=== PATIENT | female | born 1980 | race Caucasian/White ===

== ENCOUNTER 2018-01-31 14:58 | Emergency (ER) | payer OTHER ==
[2018-01-31 15:30] VITALS: BP 123/85
--- NOTE | 2018-01-31 16:49 | UC ---
Lower Extremity/Ankle HPI - HPI Summary HPI Summary: 37 y/o female presents to the urgent care c/o left second toe painful, swollen and red since this morning. Pt reports she was in a retrieve and she was walking by the water and mud and she realized her toe was very sensitive when she walked. Pt states pain is 7/10 at touch w/o any drainage. Pt denies numbness or tingling sensation over the left foot, calf pain, SOB, chest pain, abdominal pain, N/V/D. - History of Current Complaint Chief Complaint: UCLowerExtremity Stated Complaint: INFECTED TOE Time Seen by Provider: 01/31/18 16:25 Hx Obtained From: Patient Hx Last Menstrual Period: [id number] ?: No Onset/Duration: Gradual Onset, Lasting Hours - 12hrs Severity Initially: Mild Severity Currently: Moderate Pain Intensity: 7 Pain Scale Used: 0-10 Numeric Aggravating Factor(s): Ambulation Alleviating Factor(s): Rest Able to Bear Weight: Yes - Risk Factors Gout Risk Factors: Negative DVT Risk Factors: Negative Septic Arthritis Risk Factor: Negative - Allergies/Home Medications Allergies/Adverse Reactions: Allergies Allergy/AdvReac Type Severity Reaction Status Date / Time No Known Allergies Allergy Verified 01/31/18 15:31 PMH/Surg Hx/FS Hx/Imm Hx Previously Healthy: Yes - Pt denies PMHX - Surgical History Surgical History: Yes Surgery Procedure, Year, and Place: fibroid removal 2011 - Family History Known Family History: Positive: Diabetes - Social History Occupation: Employed Full-time Lives: With Family Alcohol Use: Weekly Substance Use Type: None Smoking Status (MU): Former Smoker Review of Systems Skin: Other - swelling and redness over the 2nd toe Eyes: Negative ENT: Negative Respiratory: Negative Cardiovascular: Negative Gastrointestinal: Negative Genitourinary: Negative Motor: Negative Neurovascular: Negative Musculoskeletal: Other: - left 2nf toenail pain Neurological: Negative Psychological: Negative Is Patient Immunocompromised?: No All Other Systems Reviewed And Are Negative: Yes Physical Exam - Summary Physical Exam Summary: Vital Signs Reviewed: Yes General: well developed, well nourished female sitting in the examining table w/ o any apparent distress Eye Exam: Normal Eyes: Positive: Conjunctiva Clear - PERRLA, EOMI, fundi grossly normal ENT: Positive: Normal ENT inspection, Hearing grossly normal, Pharynx normal, TMs normal Neck: Positive: Supple, Nontender, No Lymphadenopathy Respiratory: Positive: Chest non-tender, Lungs clear, Normal breath sounds, No respiratory distress Cardiovascular: Positive: RRR, No Murmur, Pulses Normal, Brisk Capillary Refill Abdomen Description: Positive: Nontender, No Organomegaly, Soft. Negative: CVA Tenderness (R), CVA Tenderness (L) Bowel Sounds: Positive: Present Musculoskeletal: Positive: Strength Intact, ROM Intact, No Edema Neurological: Positive: Alert, Muscle Tone Normal Psychological Exam: Normal Skin: Positive: LF foot # 2 phalanx on lateral side of nail w/ discrete nail pointing out w/ surrounding swelling and redness, no drainage or induration observed, tender to palpation, and warm to touch . FROM of phalanx, sensation is intact, capillary refill WNL, reflexes WNL Triage Information Reviewed: Yes Vital Signs: Initial Vital Signs Temp 98.6 F 01/31/18 15:24 Pulse 61 01/31/18 15:24 Resp 16 01/31/18 15:24 BP 123/85 01/31/18 15:24 Pulse Ox 100 01/31/18 15:24 Lower Extremity Course/Dx - Course Course Of Treatment: 37 y/o female presents to the urgent care c/o left second toe painful, swollen and red since this morning. Pt reports she was in a retrieve and she was walking by the water and mud and she realized her toe was very sensitive when she walked. Pt states pain is 7/10 at touch w/o any drainage. Pt denies numbness or tingling sensation over the left foot, calf pain , SOB, chest pain, abdominal pain, N/V/D. Hx obtained. Pt w/ a discrete ingrown toe nail of left 2nd toe on examination. Pt's toe irrigated w/ sterile water and cleaned w/ iodine swabs. a discrete pointed nail removed w/ sterile scisors and Pt felt better. Bacitracin oint applied over wound and toe covered w/ sterile dressing. Pt Rx Keflex PO, [place] paks and Bacitracin oint. D/C instructions explained. Pt understood and agreed w/ plan of care. - Differential Dx/Diagnosis Differential Diagnosis/HQI/PQRI: Cellulitis, Puncture Wound, Sprain, Strain, Tendonitis, Other - paronychia Provider Diagnoses: 1- Ingrown toenail of left 2nd phalanx Discharge - Sign-Out/Discharge Documenting (check all that apply): Patient Departure - D/C home All imaging exams completed and their final reports reviewed: Yes - Discharge Plan Condition: Stable Disposition: HOME Prescriptions: Bacitracin OINTMENT* 1 applic TOPICAL BID #1 tube Calcium Acetate/Aluminum Sulf [[place] Powder Packet] 1 each TP TID #1 powd.pack Cephalexin CAP* [Keflex CAP*] 500 mg PO QID #28 cap Patient Education Materials: Ingrown Nail (ED) Referrals: [facility] [Outside] - 3 Days Additional Instructions: 1-Please take full course of antibiotic to avoid resistance. Keep wound clean and dry with a sterile dressing. Apply bacitracin topical as directed 2-. Take Ibuprofen PO q6-8hrs prn for pain or swelling. 3- soak your toe w/ [place] paks as directed to alleviate symptoms,. 4- If not improvement of symptoms please f/u w/ your PCP or return to the urgent clinic for further management- - Billing Disposition and Condition Condition: STABLE Disposition: Home
== END 2018-01-31 17:15 | disposition home or self-care (01) ==
LOC: UCEAST 14:58
DX: L60.0 Ingrowing nail (principal); Z87.891 Personal history of nicotine dependence
CPT/HCPCS: 99202; G0463